=== PATIENT | male | born 1980 | race Caucasian/White ===

== ENCOUNTER 2023-12-26 10:04 | Emergency (ER) | payer OTHER, BC ==
[~2023-12-26] VITALS: Ht 177.8 cm; Wt 104.6 kg
[2023-12-26] MEDS ORDERED: BACL10TA2 PO (10:51)
[2023-12-26] MEDS ORDERED: IBUP-1986 PO (10:51)
[2023-12-26 10:57] VITALS: BP 144/91; PULSE 107; RESP 16; TEMP 99.1; O2SAT 99
[2023-12-26] MEDS: bacitracin 15gm ointment TP ONE (10:57)
== END 2023-12-26 10:59 | disposition home or self-care (01) ==
LOC: ER 10:05
DX: S50.812A Abrasion of left forearm, initial encounter (principal); S09.8XXA Other specified injuries of head, initial encounter; S19.89XA Other specified injuries of other specified part of neck, initial encounter; Z79.899 Other long term (current) drug therapy; Z79.1 Long term (current) use of non-steroidal anti-inflammatories (NSAID); V87.7XXA Person injured in collision between other specified motor vehicles (traffic), initial encounter; Y93.89 Activity, other specified; Y92.89 Other specified places as the place of occurrence of the external cause; Y99.8 Other external cause status
CPT/HCPCS: 99283